=== PATIENT | male | born 1960 | race Caucasian/White ===

== ENCOUNTER 2016-10-17 07:46 | Outpatient (CLI) | payer OTHER ==
[2016-10-17 08:13] LABS: Hemoglobin A1c 7.8 % (4.0-6.0)
[2016-10-17 08:22] LABS: #Basophils 0.1 thou/uL (0.0-0.2); #Eosinphils 0.4 thou/uL (0.0-0.7); #Lymphocytes 2.9 thou/uL (1.20-3.40); #Monocytes 0.9 thou/uL (0.11-0.59); #Neutrophils 4.7 thou/uL (1.40-6.50); %Basophils 1.2 % (0.0-1.0); %Eosinophils 4.9 % (0.0-10.0); %Lymphocytes 32.5 % (21.0-51.0); %Monocytes 9.5 % (0.0-10.0); %Neutrophils 51.9 % (42.0-75.0); Hemoglobin 14.9 g/dL (14.0-18.0); Mean Corpuscular HGB CONC 33.8 g/dL (32.0-36.0); Mean Corpuscular Hemoglobin 28.5 pg (27.0-31.0); Mean Corpuscular Volume 84.2 fl (80.0-94.0); Mean Platelet Volume 7.9 fL (7.4-10.4); Platelet Count 277 thou/uL (130-400); RBC Distribution Width 12.2 % (11.5-14.5); Red Blood Cell (RBC) Count 5.24 mill/uL (4.70-6.10)
[2016-10-17 08:28] LABS: ALT (SGPT) 18 U/L (0-55); AST (SGOT) 16 U/L (5-34); Albumin 4.2 g/dL (3.5-5.0); Alkaline Phosphatase 86 U/L (40-150); Anion Gap 13 mmol/L (10-20); BUN (Urea Nitrogen) 18 mg/dL (8.4-25.7); Bilirubin, Direct 0.1 mg/dL (0.1-0.3); Bilirubin, Total 0.3 mg/dL (0.2-1.2); Calc. Creatinine Clearance 0 mL/min (70-130); Calcium 9.2 mg/dL (7.8-10.44); Carbon Dioxide 25 mmol/L (22-29); Cardiac Risk 5.4 (Less than 4.5); Chloride 103 mmol/L (98-107); Cholesterol 177 mg/dL (< 200 Desired); Estimated GFR-MDRD Greater than 90; Glucose 198 mg/dL (70-105); HDL Cholesterol 33 mg/dL (>60 Neg Risk); LDL Cholesterol, Calculated 116 mg/dL; Potassium 4.4 mmol/L (3.5-5.1); Protein, Total 6.7 g/dL (6.0-8.3); Sodium 137 mmol/L (136-145); Triglycerides 139 mg/dL (Less than 150)
== END 2016-10-17 07:47 | disposition home or self-care (01) ==
LOC: MADLABBHPM 07:46
PROVIDERS: ATTEND Family Medicine
DX: E78.00 Pure hypercholesterolemia, unspecified (principal); E11.9 Type 2 diabetes mellitus without complications; I10 Essential (primary) hypertension
CPT/HCPCS: 36415; 80048; 80061; 80076; 83036; 85025

== ENCOUNTER 2018-01-21 16:00 | Outpatient (CLI) | payer BC ==
--- NOTE | 2018-01-21 17:36 | CT ---
CT ABDOMEN NONCONTRAST CT PELVIS NONCONTRAST: (urolithiasis protocol) DATE: 01/21/18 TIME: 4:38 p.m. HISTORY: 57-year-old male with right flank pain for two weeks, worsening today, with hematuria. Dr. Glover discussed the finding and the recommendation for urgent urologist consultation by telephone w estefani Dunlap, at 5:19 p.m. on 01/21/18. COMPARISON: None. TECHNIQUE: IV injection of iodinated contrast media: none Oral contrast media: none FINDINGS: Other than for urolithiasis, the lack of IV and oral contrast limits the evaluation. There is a 7 x 5 x 4 mm calculus lodged at the right UPJ, causing moderate right hydronephrosis, mild right nephromegaly, and a moderate amount of free fluid throughout the right perirenal space, which probably represents extravasated urine due to pyelocalyceal blowout. Within a right renal lower pole calyx, there is a larger, 12 x 7 x 15 mm calculus. There is no calculus in the bladder, left ureter, or left kidney. There are two heterogeneously sligh tly low attenuation lesions in the left renal parenchyma, on the order of 1 cm in size at posterior l ower pole, and another approximately 3 cm at the posterior aspect of the left renal upper pole, with ill defined irregular margins. Diffusely low hepatic attenuation represents fatty liver. Within the limitations of a noncontrast sca n, no major pathology is identified involving the abdominal aorta, adrenals, pancreas, or spleen. No signs of acute colonic diverticulitis. Somewhat high intraluminal attenuation within the urinary blad genoveva suggests blood diluted by urine. No small bowel dilation. Lung bases are grossly clear. No pneumo peritoneum. IMPRESSION: 1. High grade right sided obstructive uropathy: 7 mm calculus lodged at the right ureteropelvic junction, causing moderate right hydronephrosis and right perirenal free fluid, which may represent e xtravasated urine. 2. A larger 15 mm calculus in a right renal lower pole collecting system. 3. Two parenchymal renal lesions in the contralateral left kidney. For these, multiphase CT urog gallo of the abdomen and pelvis with and without contrast is recommended, on an elective basis after th e contralateral right sided obstructive uropathy is treated. 4. Hepatic steatosis. Code CR JN R POS: MIKEL
== END 2018-01-21 16:01 | disposition home or self-care (01) ==
LOC: MADCT 16:00
PROVIDERS: ATTEND Family Medicine
DX: R10.9 Unspecified abdominal pain (principal); R82.99 Other abnormal findings in urine; K76.0 Fatty (change of) liver, not elsewhere classified; N13.9 Obstructive and reflux uropathy, unspecified; N20.2 Calculus of kidney with calculus of ureter; N28.89 Other specified disorders of kidney and ureter
CPT/HCPCS: 74176

== ENCOUNTER 2018-03-01 15:56 | Outpatient (CLI) | payer BC ==
--- NOTE | 2018-03-01 18:44 | CT ---
CT ABDOMEN AND PELVIS: 03/01/2018 PROVIDED CLINICAL HISTORY: Renal calculi. COMPARISON: 01/27/2018 FINDINGS: The visualized lung bases are free of significant opacity. Fatty infiltration of the liver is redemo nstrated. Interval placement of a right ureteral stent with proximal flow in the region of the right renal pelvis and distal flow within the urinary bladder. Tiny stone fragments are seen involving th e inferior pole calyces and mid pole calyces of the right kidney. The largest fragment measures abou t 3 to 4 mm. There is minimal calyectasis. There is stranding change seen about the right ureter. No ureteral or bladder calculi are evident. No left-sided renal calculi are seen. A mass is again s uspected, involving the superior pole of the left kidney. This appears potentially solid. There is no bowel dilatation, additional inflammatory fat stranding, free fluid, or free air apparent . the solid abdominal organs are suboptimally evaluated without IV contrast but demonstrate an other cabrera unremarkable unenhanced CT appearance. IMPRESSION: 1. Presumed interval changes of lithotripsy with a right ureteral stent in place and several small s tone fragments present within the right kidney. No ureteral or bladder calculi. 2. Findings suspicious for a solid mass involving the superior pole of the left kidney. Correlation with post contrast imaging is recommended. CODE T POS: OFF
== END 2018-03-01 15:57 | disposition home or self-care (01) ==
LOC: MADCT 15:56
PROVIDERS: ATTEND Urology
DX: N20.0 Calculus of kidney (principal); Z96.0 Presence of urogenital implants
CPT/HCPCS: 74176

== ENCOUNTER 2018-03-11 16:03 | Outpatient (CLI) | payer BC ==
[~2018-03-11 16:03] MED LIST: Iopamidol 370 76% 100 ML VIAL ONE
[2018-03-11 16:35] LABS: Calc. Creatinine Clearance 0 mL/min (70-130); Estimated GFR-MDRD Greater than 90
--- NOTE | 2018-03-11 17:31 | CT ---
CT ABDOMEN AND PELVIS WITH AND WITHOUT IV CONTRAST: 03/11/18 HISTORY: Renal stones with lithotripsy. Renal mass. Additional evaluation. COMPARISON: 03/01/18. FINDINGS: There is minimal distention of the right renal collecting system and ureter with subtle stranding cydney und the upper ureter. Left renal collecting system and ureter are decompressed. Two tiny calcificatio ns within nondilated calyces at the inferior pole of the right kidney are each approximately 0.2 cm g reatest diameter. No filling defects are apparent within the urinary system on the delayed images. There is good excret ion of contrast throughout each urinary tract. At the superior pole of the left kidney medially, a heterogeneously enhancing solid mass is 3.8 cm. A t the lateral cortex inferior pole of the right kidney, a 2.7 cm subtle focus of mass-like abnormalit y shows heterogeneous enhancement and is worrisome for an additional mass. Small cyst is associated w ith the inferior pole left renal cortex. Degenerative changes lumbar spine. Diverticula of the colon without adjacent inflammation. IMPRESSION: 1. Solid heterogeneously enhancing mass superior pole left kidney most likely represents a renal cell carcinoma. 2. Enhancing abnormality/mass at the inferior pole of the right kidney is in area of recent lith otripsy. It does have the appearance of a mass on the contrast enhanced images. Parenchymal injury fr om recent lithotripsy would be a possibility. In that case, short term follow up could be used to dif ferentiate for healing of the injury versus stability or progression of a mass. 3. Tiny residual calcifications inferior pole right kidney. POS: MIKEL
== END 2018-03-11 16:04 | disposition home or self-care (01) ==
LOC: MADCT 16:03
PROVIDERS: ATTEND Urology
DX: D49.512 Neoplasm of unspecified behavior of left kidney (principal); N28.89 Other specified disorders of kidney and ureter
CPT/HCPCS: 36415; 74178; 82565

== ENCOUNTER 2018-03-16 15:15 | Outpatient (CLI) | payer BC ==
--- NOTE | 2018-03-16 16:31 | RAD ---
TWO VIEWS OF THE CHEST: 03/16/18 HISTORY: Preoperative chest radiograph. PA and lateral views of the chest is obtained. The lungs are well aerated. No evidence of active intr athoracic disease seen. No evidence of effusions, pneumonia, or pneumothorax seen. IMPRESSION: Normal two views chest. POS: [facility]
== END 2018-03-16 15:16 | disposition home or self-care (01) ==
LOC: MADRAD 15:15
PROVIDERS: ATTEND Urology
DX: N28.89 Other specified disorders of kidney and ureter (principal)
CPT/HCPCS: 71046

== ENCOUNTER 2018-06-01 07:25 | Outpatient (CLI) | payer BC ==
[2018-06-01 09:46] LABS: #Basophils 0.1 thou/uL (0.0-0.2); #Eosinphils 0.4 thou/uL (0.0-0.7); #Lymphocytes 2.7 thou/uL (1.20-3.40); #Monocytes 0.7 thou/uL (0.11-0.59); #Neutrophils 3.3 thou/uL (1.40-6.50); %Basophils 1.2 % (0.0-1.0); %Eosinophils 5.1 % (0.0-10.0); %Lymphocytes 37.8 % (21.0-51.0); %Monocytes 10.4 % (0.0-10.0); %Neutrophils 45.6 % (42.0-75.0); Hemoglobin 13.5 g/dL (14.0-18.0); Mean Corpuscular HGB CONC 33.2 g/dL (32.0-36.0); Mean Corpuscular Hemoglobin 27.9 pg (27.0-31.0); Mean Corpuscular Volume 84.2 fL (78.0-98.0); Mean Platelet Volume 6.6 fL (7.4-10.4); Platelet Count 234 thou/uL (130-400); RBC Distribution Width 12.5 % (11.5-14.5); Red Blood Cell (RBC) Count 4.83 mill/uL (4.70-6.10); White Blood Cell (WBC) Count 7.2 thou/uL (4.8-10.8)
[2018-06-01 09:57] LABS: Anion Gap 13 mmol/L (10-20); BUN (Urea Nitrogen) 20 mg/dL (8.4-25.7); Calc. Creatinine Clearance 0 mL/min (70-130); Carbon Dioxide 23 mmol/L (22-29); Chloride 109 mmol/L (98-107); Estimated GFR-MDRD Greater than 90; Glucose 108 mg/dL (70-105); Potassium 3.9 mmol/L (3.5-5.1); Sodium 141 mmol/L (136-145)
== END 2018-06-01 07:26 ==
LOC: MADLABBHPM 07:25
PROVIDERS: ATTEND Family Medicine
DX: E11.9 Type 2 diabetes mellitus without complications (principal)
CPT/HCPCS: 36415; 80048; 85025

== ENCOUNTER 2018-07-05 17:22 | Outpatient (CLI) | payer BC ==
--- NOTE | 2018-07-05 20:20 | CT ---
CT ABDOMEN AND PELVIS PERFORMED WITH AND WITHOUT CONTRAST ENHANCEMENT: HISTORY: Followup of left renal mass. History of partial left nephrectomy. COMPARISON: 03/11/2018 FINDINGS: ABDOMEN: The lung bases are clear. The liver shows some fatty change. The spleen is within normal limits in size. The pancreas and gallbladder regions are unremarkable. The right and left adrenal glands are normal in appearance. There is a nonobstructing mid to slightl y lower pole right renal calculus, measuring 4 to 5 mm. No additional renal calculi are seen. The p tsering has undergone a partial nephrectomy, involving a mass involving the posterior cortex of the up per pole of the left kidney. There is some perinephric fat stranding, which is compatible with some scar. I do not see any signs of any recurrent mass. Just inferior to this level is a stable appeari ng cyst. On the right side, there is a somewhat subtle, hypodense area within the posterior cortex o f the right kidney, more in the lower pole region. This area is much less prominent on this study. It is difficult to even visualize without the benefit of the previous exam. There is no significant periaortic or mesenteric adenopathy. PELVIS: There is no evidence of any significant adenopathy, mass, or free fluid. A small, fat-conta ining periumbilical hernia is noted. IMPRESSION: 1. Postoperative left nephrectomy change. 2. Approximately 4 to 5 mm, nonobstructing right renal calculus. 3. The subtle hypodense area within the posterior cortex of the mid to lower pole region of the righ t kidney is difficult to even visualize on this examination, although there is still some subtle wells ge in this region. It probably represents some minimal residual changes post lithotripsy. POS: MIKEL
== END 2018-07-05 17:23 | disposition home or self-care (01) ==
LOC: MADCT 17:22
PROVIDERS: ATTEND Urology
DX: N28.89 Other specified disorders of kidney and ureter (principal); N20.0 Calculus of kidney; Z90.5 Acquired absence of kidney
CPT/HCPCS: 74178

== ENCOUNTER 2019-01-04 08:05 | Outpatient (CLI) | payer BC ==
--- NOTE | 2019-01-04 08:47 | RAD ---
CHEST 2 VIEWS: Date: 01/04/19 HISTORY: Kidney cancer. COMPARISON: 03/16/18. FINDINGS: Heart size is normal. The lungs are clear. No pneumonia, edema, or pleural effusion, or other acute p rocess. IMPRESSION: No acute intrathoracic disease. Stable from prior study. No evidence for metastasis. POS: OFF
[2019-01-04 09:06] LABS: #Basophils 0.1 thou/uL (0.0-0.2); #Eosinphils 0.4 thou/uL (0.0-0.7); #Lymphocytes 2.4 thou/uL (1.20-3.40); #Monocytes 0.8 thou/uL (0.11-0.59); #Neutrophils 3.8 thou/uL (1.40-6.50); %Basophils 1.4 % (0.0-1.0); %Eosinophils 5.6 % (0.0-10.0); %Lymphocytes 31.8 % (21.0-51.0); %Monocytes 10.7 % (0.0-10.0); %Neutrophils 50.5 % (42.0-75.0); Hemoglobin 13.5 g/dL (14.0-18.0); Mean Corpuscular HGB CONC 32.8 g/dL (32.0-36.0); Mean Corpuscular Hemoglobin 27.4 pg (27.0-31.0); Mean Corpuscular Volume 83.5 fL (78.0-98.0); Mean Platelet Volume 7.1 fL (7.4-10.4); Platelet Count 228 thou/uL (130-400); RBC Distribution Width 12.5 % (11.5-14.5); Red Blood Cell (RBC) Count 4.93 mill/uL (4.70-6.10); White Blood Cell (WBC) Count 7.5 thou/uL (4.8-10.8)
[2019-01-04 09:20] LABS: ALT (SGPT) 20 U/L (8-55); AST (SGOT) 18 U/L (5-34); Albumin 4.2 g/dL (3.5-5.0); Alkaline Phosphatase 72 U/L (40-150); Anion Gap 12 mmol/L (10-20); BUN (Urea Nitrogen) 23 mg/dL (8.4-25.7); Bilirubin, Total 0.3 mg/dL (0.2-1.2); Calc. Creatinine Clearance 0 mL/min (70-130); Carbon Dioxide 23 mmol/L (22-29); Chloride 107 mmol/L (98-107); Estimated GFR-MDRD Greater than 90; Globulin 2.7 g/dL (2.4-3.5); Glucose 134 mg/dL (70-105); Potassium 4.4 mmol/L (3.5-5.1); Protein, Total 6.9 g/dL (6.0-8.3); Sodium 138 mmol/L (136-145)
[2019-01-04] MEDS ORDERED: Iopamidol 370 76% 100 ML VIAL ONE (11:52)
--- NOTE | 2019-01-05 08:01 | CT ---
Pre and postcontrast enhanced CT images of abdomen and pelvis. HISTORY: History of renal cell carcinoma 6 months follow-up. Comparison made to previous exam from 07/05/2018. Pre and postcontrast enhanced CT images of the abdomen and pelvis obtained. The lung bases are unremarkable. Extensive coronary artery calcifications seen. There is a increase in the lower pole right renal calculus. Previously this measured approximately 4 mm. This has not increased in size to 11 mm. No evidence of associated hydroureter nephrosis seen. Partial nephrectomy changes seen in the posterior aspect of the left kidney unchanged since the previ ous exam. The liver and spleen are unremarkable. Gallbladder and pancreas are unremarkable. Adrenal glands unremarkable. Small bowel and colon unremarkable. Small umbilical hernia is seen. IMPRESSION: increase in size of lower pole right renal calculus.
== END 2019-01-04 08:06 | disposition home or self-care (01) ==
LOC: MADLAB 08:05
PROVIDERS: ATTEND Urology
DX: D49.512 Neoplasm of unspecified behavior of left kidney (principal); N20.0 Calculus of kidney
CPT/HCPCS: 36415; 71046; 74178; 80053; 85025; Q9967

== ENCOUNTER 2019-07-15 15:43 | Outpatient (CLI) | payer BC ==
--- NOTE | 2019-07-15 16:00 | RAD ---
XR Chest Pa Lat STANDARD History: Malignant neoplasm the left kidney Comparison: Chest radiograph January 2019 Findings: The lungs are clear. No pneumothorax or effusion. Cardiac silhouette and mediastinal contou rs are within normal limits. No acute osseous abnormality. Impression: No acute intrathoracic abnormality.
== END 2019-07-15 15:44 | disposition home or self-care (01) ==
LOC: MADRAD 15:43
PROVIDERS: ATTEND Urology
DX: C64.2 Malignant neoplasm of left kidney, except renal pelvis (principal)
CPT/HCPCS: 71046

== ENCOUNTER 2020-04-17 17:22 | Outpatient (CLI) | payer OTHER ==
--- NOTE | 2020-04-17 18:31 | RAD ---
PA AND LATERAL VIEWS OF THE CHEST: 04/17/20 HISTORY: Renal cell carcinoma. COMPARISON: 07/15/19. The heart size is normal. There is continued mild elevation of the right hemidiaphragm. No focal area s of consolidation, pneumothoraces, mass or pleural effusions are seen. There are mild degenerative c hanges in the spine. IMPRESSION: Stable exam. No acute process. POS: [facility]
[2020-04-17 18:40] LABS: #Basophils 0.1 thou/uL (0.0-0.2); #Eosinphils 0.3 thou/uL (0.0-0.7); #Lymphocytes 2.8 thou/uL (1.20-3.40); #Monocytes 0.9 thou/uL (0.11-0.59); #Neutrophils 5.5 thou/uL (1.40-6.50); %Basophils 1.4 % (0.0-1.0); %Eosinophils 3.5 % (0.0-10.0); %Lymphocytes 29.2 % (21.0-51.0); %Monocytes 9.5 % (0.0-10.0); %Neutrophils 56.3 % (42.0-75.0); ALT (SGPT) 21 U/L (8-55); AST (SGOT) 17 U/L (5-34); Albumin 4.3 g/dL (3.5-5.0); Alkaline Phosphatase 81 U/L (40-110); Anion Gap 16 mmol/L (10-20); BUN (Urea Nitrogen) 25 mg/dL (8.4-25.7); Bilirubin, Total 0.2 mg/dL (0.2-1.2); Calc. Creatinine Clearance 0 mL/min (70-130); Calcium 8.9 mg/dL (7.8-10.44); Carbon Dioxide 22 mmol/L (22-29); Chloride 102 mmol/L (98-107); Estimated GFR-MDRD 83; Globulin 2.8 g/dL (2.4-3.5); Glucose 139 mg/dL (70-105); Hemoglobin 14.4 g/dL (14.0-18.0); Mean Corpuscular HGB CONC 33.4 g/dL (32.0-36.0); Platelet Count 278 thou/uL (130-400); Potassium 4.5 mmol/L (3.5-5.1); Protein, Total 7.1 g/dL (6.0-8.3); RBC Distribution Width 12.3 % (11.5-14.5); Red Blood Cell (RBC) Count 5.15 mill/uL (4.70-6.10); Sodium 135 mmol/L (136-145); White Blood Cell (WBC) Count 9.7 thou/uL (4.8-10.8)
[2020-04-17 18:54] LABS: Thyroid Stimulating Hormone 1.3093 uIU/mL (0.35-4.94)
[2020-04-17 23:12] LABS: Hemoglobin A1c 7.8 % (4.0-6.0)
[2020-04-18 12:04] LABS: PSA-Symptomatic (DIAGNOSTIC) 0.44 ng/mL (0-4.0)
== END 2020-04-17 17:23 | disposition home or self-care (01) ==
LOC: MADLAB 17:22
PROVIDERS: ATTEND Urology
DX: C64.2 Malignant neoplasm of left kidney, except renal pelvis (principal); N40.0 Benign prostatic hyperplasia without lower urinary tract symptoms; E11.9 Type 2 diabetes mellitus without complications
CPT/HCPCS: 36415; 71046; 80053; 83036; 84153; 84443; 85025

== ENCOUNTER 2020-10-15 19:08 | Outpatient (CLI) | payer SELFPAY | END 2020-10-15 19:09 | disposition home or self-care (01) | LOC: MADRAD 19:08 | PROVIDERS: ATTEND Urology | DX: C64.9 Malignant neoplasm of unspecified kidney, except renal pelvis (principal) | CPT/HCPCS: 71046 ==

== ENCOUNTER 2021-03-16 14:29 | Emergency (ER) | payer BC, SELFPAY ==
[2021-03-16 15:46] LABS: #Basophils 0.1 thou/uL (0.0-0.2); #Eosinphils 0.2 thou/uL (0.0-0.7); #Lymphocytes 2.1 thou/uL (1.20-3.40); #Monocytes 0.8 thou/uL (0.11-0.59); #Neutrophils 5.7 thou/uL (1.40-6.50); %Basophils 0.8 % (0.0-1.0); %Lymphocytes 23.3 % (21.0-51.0); %Monocytes 9.2 % (0.0-10.0); %Neutrophils 64.7 % (42.0-75.0); Hemoglobin 15.4 g/dL (14.0-18.0); Mean Corpuscular HGB CONC 32.4 g/dL (32.0-36.0); Mean Corpuscular Volume 86.5 fL (78.0-98.0); Mean Platelet Volume 8.3 fL (7.4-10.4); Platelet Count 236 thou/uL (130-400); RBC Distribution Width 12.6 % (11.5-14.5); Red Blood Cell (RBC) Count 5.49 mill/uL (4.70-6.10); White Blood Cell (WBC) Count 8.9 thou/uL (4.8-10.8)
[2021-03-16 16:03] LABS: ALT (SGPT) 32 U/L (8-55); AST (SGOT) 33 U/L (5-34); Albumin 4.2 g/dL (3.5-5.0); Alkaline Phosphatase 81 U/L (40-110); Anion Gap 16 mmol/L (10-20); BUN (Urea Nitrogen) 21 mg/dL (8.4-25.7); Bilirubin, Total 0.4 mg/dL (0.2-1.2); CK (CPK) 331 U/L (30-200); Calc. Creatinine Clearance 0 mL/min (70-130); Calcium 9.9 mg/dL (7.8-10.44); Carbon Dioxide 24 mmol/L (22-29); Chloride 102 mmol/L (98-107); Globulin 2.9 g/dL (2.4-3.5); Glucose 222 mg/dL (70-105); Potassium 4.7 mmol/L (3.5-5.1); Protein, Total 7.1 g/dL (6.0-8.3); Sodium 137 mmol/L (136-145)
[2021-03-16 16:10] LABS: CKMB 9.8 ng/mL (0-6.6)
[2021-03-16] MEDS ORDERED: Aspirin Chewable 81 MG TAB ONE (16:23)
[2021-03-16] MEDS ORDERED: Nitroglycerin 2% Ointment 1 INCH/1 GM Packet ONE (16:23)
[2021-03-16 17:06] LABS: Prothrombin Time 13.3 sec (12.0-14.7)
[2021-03-16 17:07] LABS: PTT 28.1 sec (22.9-36.1)
[2021-03-16] MEDS ORDERED: Enoxaparin Sodium 40 MG/0.4 ML SYRINGE ONE (17:25)
== END 2021-03-16 18:14 | disposition short-term general hospital (02) ==
LOC: MADERS 14:29
DX: I21.9 Acute myocardial infarction, unspecified (principal); R06.00 Dyspnea, unspecified; E78.5 Hyperlipidemia, unspecified; E78.00 Pure hypercholesterolemia, unspecified; E11.9 Type 2 diabetes mellitus without complications; I10 Essential (primary) hypertension; Z87.442 Personal history of urinary calculi; Z85.50 Personal history of malignant neoplasm of unspecified urinary tract organ; Z79.84 Long term (current) use of oral hypoglycemic drugs; Z79.899 Other long term (current) drug therapy
CPT/HCPCS: 71046; 80053; 82550; 82553; 83880; 84484; 85025; 85379; 85610; 85730; 93005; 94760; 96372; J1650

== ENCOUNTER 2021-03-28 16:13 | Emergency (ER) | payer BC ==
[~2021-03-28 16:13] MED LIST changes: -Iopamidol 370 76% 100 ML VIAL ONE; +Sodium Chloride 0.9% 1,000 ML BAG ONE; +Sodium Chloride 0.9% 100 ML BAG ONE; +Sodium Chloride 0.9% 500 ML BAG ONE
[2021-03-28] MEDS ORDERED: Diltiazem 125 MG/25 ML ONE ×2 (16:52→19:08)
[2021-03-28 17:18] LABS: #Basophils 0.1 thou/uL (0.0-0.2); #Eosinphils 0.3 thou/uL (0.0-0.7); #Lymphocytes 3.6 thou/uL (1.20-3.40); #Monocytes 1.1 thou/uL (0.11-0.59); #Neutrophils 6.8 thou/uL (1.40-6.50); %Basophils 1.2 % (0.0-1.0); %Eosinophils 2.2 % (0.0-10.0); %Lymphocytes 30.3 % (21.0-51.0); %Monocytes 9.1 % (0.0-10.0); %Neutrophils 57.2 % (42.0-75.0); Hemoglobin 14.5 g/dL (14.0-18.0); Mean Corpuscular HGB CONC 31.6 g/dL (32.0-36.0); Mean Corpuscular Hemoglobin 27.4 pg (27.0-31.0); Mean Corpuscular Volume 86.8 fL (78.0-98.0); Mean Platelet Volume 6.6 fL (7.4-10.4); Platelet Count 426 thou/uL (130-400); Red Blood Cell (RBC) Count 5.29 mill/uL (4.70-6.10); White Blood Cell (WBC) Count 11.9 thou/uL (4.8-10.8)
[2021-03-28 17:38] LABS: ALT (SGPT) 24 U/L (8-55); AST (SGOT) 18 U/L (5-34); Albumin 3.9 g/dL (3.5-5.0); Alkaline Phosphatase 102 U/L (40-110); Anion Gap 16 mmol/L (10-20); BUN (Urea Nitrogen) 23 mg/dL (8.4-25.7); Bilirubin, Total 0.4 mg/dL (0.2-1.2); Calc. Creatinine Clearance 0 mL/min (70-130); Calcium 9.9 mg/dL (7.8-10.44); Carbon Dioxide 25 mmol/L (22-29); Chloride 98 mmol/L (98-107); Globulin 3.1 g/dL (2.4-3.5); Glucose 232 mg/dL (70-105); Magnesium 1.8 mg/dL (1.6-2.6); Potassium 5.7 mmol/L (3.5-5.1); Sodium 133 mmol/L (136-145)
[2021-03-28] MEDS ORDERED: Sodium Chloride 0.9% 100 ML ONE (19:08)
[2021-03-28] MEDS ORDERED: Insulin Regular 300 UNITS/3 ML VIAL ONE (19:48)
[2021-03-28] MEDS ORDERED: Dextrose 50% Abboject 50 ML SYRINGE ONE (19:48)
[2021-03-28] MEDS ORDERED: Sodium Chloride 0.9% 1,000 ML ONE (22:31)
[2021-03-28] MEDS ORDERED: Enoxaparin Sodium 80 MG/0.8 ML SYRINGE ONE (22:58)
[2021-03-28 23:43] LABS: Troponin I 0.022 ng/mL (< 0.028)
[2021-03-29] MEDS ORDERED: metFORMIN 500 MG TAB ONE (08:31)
[2021-03-29] MEDS ORDERED: Aspirin 325 MG TAB ONE (08:31)
[2021-03-29] MEDS ORDERED: glipiZIDE 5 MG TAB PO SCH (09:15)
[2021-03-29 09:37] LABS: Anion Gap 14 mmol/L (10-20); BUN (Urea Nitrogen) 17 mg/dL (8.4-25.7); Calc. Creatinine Clearance 0 mL/min (70-130); Carbon Dioxide 23 mmol/L (22-29); Chloride 104 mmol/L (98-107); Potassium 4.8 mmol/L (3.5-5.1); Sodium 136 mmol/L (136-145)
[2021-03-29 09:38] LABS: Calcium 8.9 mg/dL (7.8-10.44); Glucose 276 mg/dL (70-105)
[2021-03-29 09:41] LABS: Troponin I 0.015 ng/mL (< 0.028)
[2021-03-29] MEDS ORDERED: Diltiazem 125 MG/25 ML ONE (09:43)
[2021-03-29] MEDS ORDERED: Enoxaparin Sodium 80 MG/0.8 ML SYRINGE ONE (10:54)
[2021-03-29] MEDS ORDERED: Digoxin 0.5 MG/2 ML AMP ONE (10:54)
== END 2021-03-29 12:20 | disposition short-term general hospital (02) ==
LOC: MADERS 16:13
DX: I48.92 Unspecified atrial flutter (principal); E78.5 Hyperlipidemia, unspecified; E78.00 Pure hypercholesterolemia, unspecified; E11.9 Type 2 diabetes mellitus without complications; I10 Essential (primary) hypertension; Z79.899 Other long term (current) drug therapy
CPT/HCPCS: 71045; 80048; 80053; 83735; 83880; 84484; 85025; 93005; 96365; 96366; 96372; 96375; 96376; J1160; J1650; J1815; J3490; J7030; J7050

== ENCOUNTER 2023-07-13 18:50 | Outpatient (CLI) | payer BC | END 2023-07-13 18:51 | disposition home or self-care (01) | LOC: MADRAD 18:50 | PROVIDERS: ATTEND Urology | DX: C64.2 Malignant neoplasm of left kidney, except renal pelvis (principal) | CPT/HCPCS: 71046 ==

== ENCOUNTER 2024-07-05 17:09 | Outpatient (CLI) | payer BC | END 2024-07-05 17:10 | disposition home or self-care (01) | LOC: MADRAD 17:09 | PROVIDERS: ATTEND Urology | DX: C64.2 Malignant neoplasm of left kidney, except renal pelvis (principal) | CPT/HCPCS: 71046 ==

== ENCOUNTER 2024-08-09 19:29 | Emergency (ER) | payer BC ==
[2024-08-09] MEDS ORDERED: HYDROcodone/Acetaminophen 10/325 mg Tablet ONE (20:24)
[2024-08-09] MEDS ORDERED: tiZANidine HCl 4 MG TAB PO SCH (20:45)
== END 2024-08-09 20:55 | disposition home or self-care (01) ==
LOC: MADERS 19:29
DX: S12.030A Displaced posterior arch fracture of first cervical vertebra, initial encounter for closed fracture (principal); E11.9 Type 2 diabetes mellitus without complications; I10 Essential (primary) hypertension; E78.5 Hyperlipidemia, unspecified; I25.2 Old myocardial infarction; Z79.84 Long term (current) use of oral hypoglycemic drugs; Z79.82 Long term (current) use of aspirin; Z79.899 Other long term (current) drug therapy; W01.0XXA Fall on same level from slipping, tripping and stumbling without subsequent striking against object, initial encounter
CPT/HCPCS: 72125

== ENCOUNTER 2024-08-25 17:26 | Outpatient (CLI) | payer BC | END 2024-08-25 17:27 | disposition home or self-care (01) | LOC: MADRAD 17:26 | PROVIDERS: ATTEND Physician Assistant | DX: S12.000D Unspecified displaced fracture of first cervical vertebra, subsequent encounter for fracture with routine healing (principal) | CPT/HCPCS: 72040 ==

== ENCOUNTER 2024-09-16 10:02 | Outpatient (CLI) | payer BC | END 2024-09-16 10:03 | disposition home or self-care (01) | LOC: MADCT 10:02 | PROVIDERS: ATTEND Surgery | DX: S12.030D Displaced posterior arch fracture of first cervical vertebra, subsequent encounter for fracture with routine healing (principal) | CPT/HCPCS: 72125 ==